=== PATIENT | female | born 1945 | race Two or more races ===

== ENCOUNTER 2024-08-13 20:25 | Inpatient (IN) | payer OTHER ==
[~2024-08-13] VITALS: Ht 157.5 cm; Wt 51.7 kg
[~2024-08-13 20:25] MED LIST: FAMVIR500 MG PO; IMODIUM A-D2 MG PO; PEPCID40 MG; PEPCID40 MG PO; ZOFRAN4 MG PO; ZOVIRAX15 GM TP
--- NOTE | 2024-08-13 20:34 | NUR ---
PACIENTE ALERTA Y ORIENTADA X 3. REFIERE 2 SEMANAS CON TOS, CONGESTION Y DOLOR CORPORAL.
[2024-08-13] MEDS ORDERED: SYNTHROID50 MCG PO (20:43)
[2024-08-13] MEDS ORDERED: TOPROL XL50 M1 (20:43)
[2024-08-13] MEDS ORDERED: AMLODIPINE BESYL5 MG PO (20:43)
[2024-08-13] MEDS ORDERED: MILLIPRED5 MG (20:44)
[2024-08-13] MEDS ORDERED: GRALISE600 MG (20:44)
[2024-08-13] MEDS ORDERED: ROSUVASTATIN CAL5 MG PO (20:44)
[2024-08-13] MEDS ORDERED: PROAIR RESPICL90 MCG (20:45)
[2024-08-13] MEDS ORDERED: 0.9 % SODIUM CHLORIDE 1,000 ML IV ONE (21:15)
[2024-08-13] MEDS ORDERED: FAMOtidine 10 MG/ML (4ML VIAL) IV ONE (21:15)
[2024-08-13] MEDS ORDERED: levoFLOXacin IN DEXTROSE 5 % 500MG/100ML PIGGYBAG IV ONE (21:15)
--- NOTE | 2024-08-13 21:22 | NUR ---
SE EDUCA A PTE SOBRE [place] MED[facility], SE LUZ ELENA MUESTRAS DE LABORATORIO UTILIZANDO MEDIDAS ASEPTICAS. SE COLOCA H/L MATTY DE EDEMA. SE ADMINISTRAN MEDICAMENTOS LOS CUALES TOL[place]A. SE NOTIFICA ESTUDIO DE CT Y RX PENDIENTEA REALIZAR.
[2024-08-13 21:52] LABS: HEMATOCRIT 33.1 % (36.0-45.00); HEMOGLOBIN 11.1 g/dL (12.0-15.00); MEAN CELL VOLUME 91.6 fL (80.00-100.00); MEAN CORPUSCULAR HEMOGLOBIN 30.8 pg (27.00-32.0); MEAN CORPUSCULAR HGB CONC 33.6 g/dl (32.0-36.0); PLATELET COUNT 321 K/uL (150-450); RED BLOOD COUNT 3.61 M/uL (4.00-6.00); RED CELL DISTRIBUTION WIDTH 13.8 % (11.5-14.5)
[2024-08-13 21:53] LABS: ERYTHROCYTE SEDIMENTATION RATE 92 mm/hr
[2024-08-13 21:54] LABS: INR 1.12; PARTIAL THROMBOPLASTIN TIME 26.2 SECONDS (22.0-34.0); PROTHROMBIN TIME 12.1 SECONDS (9.0-11.5)
[2024-08-13 22:07] LABS: ALBUMIN 2.4 gm/dL (3.4-5.0); BILIRUBIN TOTAL 0.43 mg/dL (0.3-1.2); CREATININE SERUM 2.09 mg/dL (0.55-1.02); GFR 22.96; GLOBULINA 4.8 G/DL (2.4-3.5); POTASSIUM 4.8 mEq/L (3.5-5.1); TOTAL PROTEIN 7.2 gm/dL (6.4-8.2)
[2024-08-13 22:14] LABS: C-REACTIVE PROTEIN 21.2 MG/DL (0.00-0.29)
[2024-08-13] MEDS ORDERED: 0.9 % SODIUM CHLORIDE 1,000 ML IV SCH (23:00)
[2024-08-13] MEDS ORDERED: ACETAMINOPHEN 500 MG GEL..CAP PO PRN (23:15)
[2024-08-14] MEDS ORDERED: IPRATROPIUM BROMIDE 0.5 MG/2.5 ML AMPUL.NEB IH SCH (01:00)
[2024-08-14] MEDS ORDERED: GUAIFEN/DEXTROMETHORPHAN/PE 10 ML BLIST.PACK PO SCH (01:00)
[2024-08-14 01:15] LABS: PH,URINE 6.5 (5.0-8.0); URINE APPEARANCE Clear; URINE BILIRRUBIN Negative (NEGATIVE); URINE BLOOD Negative; URINE COLOR Yellow; URINE GLUCOSE Negative (NEGATIVE); URINE KETONE Negative (NEGATIVE); URINE LEUKOCYTE Negative; URINE NITRATE Negative; URINE PROTEIN 30 (NEGATIVE); URINE UROBILINOGEN 0.2 E.U./dl
[2024-08-14 01:19] LABS: URINE EPITHELIAL CELLS 2.3 uL (0.0-38.8); URINE WBC 3.4 uL (0.0-23.2)
[2024-08-14 01:30] LABS: URINE BACTERIA 3.6 uL (0.0-1933); URINE RBC 1.3 uL (0.0-20.8)
[2024-08-14 02:11] LABS: ABG PH 7.434 (7.35-7.45); ABG PO2 66.5 mmHg (80-100); ABG pCO2 25.9 mmHg (35-45); BASE EXCESS -5.4 mmol/l; SaO2 93.2 %
[2024-08-14 02:12] LABS: Tco2 17.8 mmol/l; allen test SATISFACTORY; o2 21 %; puncture site RADIAL LEFT
[2024-08-14] MEDS ORDERED: LEVOTHYROXINE SODIUM 50 MCG TABLET PO SCH (06:00)
[2024-08-14 08:00] VITALS: BP 142/78; O2SAT 98
[2024-08-14] MEDS ORDERED: GABAPENTIN 600 MG TABLET PO SCH (09:00)
[2024-08-14] MEDS ORDERED: levoFLOXacin IN DEXTROSE 5 % 250MG/50ML PIGGYBAG IV SCH (09:00)
[2024-08-14] MEDS ORDERED: FAMOTIDINE/PF 20 MG in 0.9 % SODIUM CHLORIDE 8 ML IV PUSH SCH (09:00)
[2024-08-14] MEDS ORDERED: ENOXAPARIN SODIUM 30 MG/0.3 ML SYRINGE SUBCUTANEO SCH (09:00)
[2024-08-14] MEDS ORDERED: METOPROLOL SUCCINATE 50 MG TAB.SR.24H PO SCH (09:00)
[2024-08-14] MEDS ORDERED: AMLODIPINE BESYLATE 5 MG TABLET PO SCH (09:00)
[2024-08-14] MEDS ORDERED: LEVOFLOXACIN IN DEXTROSE IV SCH (17:00)
[2024-08-14 17:14] VITALS: BP 134/97; O2SAT 96
[2024-08-14] MEDS ORDERED: levoFLOXacin IN DEXTROSE 5 % 500MG/100ML PIGGYBAG IV SCH (18:00)
[2024-08-15] VITALS: BP 134/75; O2SAT 98
[2024-08-15] MEDS ORDERED: AZTREONAM 2,000 MG VIAL IV SCH (05:00)
[2024-08-15 07:18] LABS: HEMATOCRIT 34.6 % (36.0-45.00); HEMOGLOBIN 11.8 g/dL (12.0-15.00); MEAN CELL VOLUME 91.4 fL (80.00-100.00); MEAN CORPUSCULAR HEMOGLOBIN 31.2 pg (27.00-32.0); MEAN CORPUSCULAR HGB CONC 34.1 g/dl (32.0-36.0); PLATELET COUNT 283 K/uL (150-450); RED BLOOD COUNT 3.79 M/uL (4.00-6.00); RED CELL DISTRIBUTION WIDTH 13.9 % (11.5-14.5)
[2024-08-15 08:00] VITALS: BP 140/79; O2SAT 95
[2024-08-15] MEDS ORDERED: METROnidazole 500 MG TABLET PO SCH (09:00)
[2024-08-15] MEDS ORDERED: LINEZOLID 600 MG TABLET PO SCH (09:00)
[2024-08-15] MEDS ORDERED: FLUCONAZOLE IN NACL,ISO-OSM 50 ML IV SCH (11:30)
[2024-08-15] MEDS ORDERED: FLUCONAZOLE IN NACL,ISO-OSM 2 MG/ML ML IV SCH (12:00)
[2024-08-15] MEDS ORDERED: GUAIFEN/DEXTROMETHORPHAN/PE 10 ML BLIST.PACK PO SCH (13:00)
[2024-08-15 16:31] LABS: CALCIUM 8.3 mg/dL (8.5-10.1); CREATININE SERUM 1.86 mg/dL (0.55-1.02); GFR 26.27; POTASSIUM 4.2 mEq/L (3.5-5.1)
[2024-08-15 17:10] VITALS: BP 110/65; O2SAT 94
[2024-08-15 18:54] LABS: URINE APPEARANCE Clear; URINE BILIRRUBIN Negative (NEGATIVE); URINE BLOOD Negative; URINE COLOR Yellow; URINE GLUCOSE Negative (NEGATIVE); URINE KETONE Negative (NEGATIVE); URINE LEUKOCYTE Negative; URINE NITRATE Negative; URINE PROTEIN 30 (NEGATIVE); URINE UROBILINOGEN 0.2 E.U./dl
[2024-08-15 18:56] LABS: URINE BACTERIA 8.5 uL (0.0-1933); URINE EPITHELIAL CELLS 3.9 uL (0.0-38.8); URINE RBC 3.5 uL (0.0-20.8)
[2024-08-15 18:57] LABS: URINE CAST 0.14 uL (0.0-1.40); URINE WBC 1.4 uL (0.0-23.2)
[2024-08-16 01:13] VITALS: BP 148/82; O2SAT 96
[2024-08-16 08:00] VITALS: BP 124/78; O2SAT 96
[2024-08-16 08:47] LABS: CALCIUM 8.3 mg/dL (8.5-10.1); CREATININE SERUM 1.77 mg/dL (0.55-1.02); GFR 27.82; POTASSIUM 4.52 mEq/L (3.5-5.1)
[2024-08-16 08:48] LABS: ALBUMIN 1.9 gm/dL (3.4-5.0); CALCIUM 8.3 mg/dL (8.5-10.1); CREATININE SERUM 1.76 mg/dL (0.55-1.02); PHOSPHOROUS 2.5 mg/dL (2.5-4.9); POTASSIUM 4.48 mEq/L (3.5-5.1)
[2024-08-16 10:23] LABS: MEAN CELL VOLUME 90.1 fL (80.00-100.00); MEAN CORPUSCULAR HEMOGLOBIN 30.9 pg (27.00-32.0); MEAN CORPUSCULAR HGB CONC 34.3 g/dl (32.0-36.0); PLATELET COUNT 270 K/uL (150-450); RED BLOOD COUNT 3.22 M/uL (4.00-6.00); RED CELL DISTRIBUTION WIDTH 13.7 % (11.5-14.5)
[2024-08-16] MEDS ORDERED: LACTOBACILLUS ACIDOPHILUS 1 CAP CAP PO NR (11:00)
[2024-08-16] MEDS ORDERED: IRON/V.C/V.B12/FOLIC A/VIT. E 1 CAPL CAPLET PO SCH (17:00)
[2024-08-16] MEDS ORDERED: VITAMIN B COMPLEX 1 EACH PO SCH (17:00)
[2024-08-16] MEDS ORDERED: LACTOBACILLUS ACIDOPHILUS 1 CAP CAP PO SCH (17:00)
[2024-08-16 20:13] VITALS: BP 127/80; O2SAT 96
[2024-08-17 00:47] VITALS: BP 130/79; O2SAT 96
[2024-08-17 08:00] VITALS: BP 113/61; O2SAT 97
[2024-08-17 08:38] LABS: HEMATOCRIT 29.2 % (36.0-45.00); HEMOGLOBIN 10.1 g/dL (12.0-15.00); MEAN CELL VOLUME 90.9 fL (80.00-100.00); MEAN CORPUSCULAR HEMOGLOBIN 31.4 pg (27.00-32.0); MEAN CORPUSCULAR HGB CONC 34.6 g/dl (32.0-36.0); PLATELET COUNT 250 K/uL (150-450); RED BLOOD COUNT 3.21 M/uL (4.00-6.00); RED CELL DISTRIBUTION WIDTH 14.3 % (11.5-14.5)
[2024-08-17 16:00] VITALS: BP 128/71; O2SAT 97
[2024-08-18 00:30] VITALS: BP 126/66; O2SAT 96
[2024-08-18 07:16] LABS: HEMATOCRIT 29.9 % (36.0-45.00); HEMOGLOBIN 10.1 g/dL (12.0-15.00); MEAN CELL VOLUME 91.2 fL (80.00-100.00); MEAN CORPUSCULAR HEMOGLOBIN 30.9 pg (27.00-32.0); MEAN CORPUSCULAR HGB CONC 33.9 g/dl (32.0-36.0); PLATELET COUNT 238 K/uL (150-450); RED BLOOD COUNT 3.27 M/uL (4.00-6.00); RED CELL DISTRIBUTION WIDTH 14.2 % (11.5-14.5)
[2024-08-18] MEDS ORDERED: SODIUM CHLORIDE 0.45 % 1,000 ML IV SCH (07:30)
[2024-08-18 08:00] VITALS: BP 130/63; O2SAT 95
[2024-08-18 16:00] VITALS: BP 132/55; O2SAT 97
[2024-08-19 00:15] VITALS: BP 110/58; O2SAT 97
[2024-08-19 06:53] LABS: HEMOGLOBIN 10.5 g/dL (12.0-15.00); MEAN CELL VOLUME 93.1 fL (80.00-100.00); MEAN CORPUSCULAR HEMOGLOBIN 30.5 pg (27.00-32.0); MEAN CORPUSCULAR HGB CONC 32.8 g/dl (32.0-36.0); PLATELET COUNT 255 K/uL (150-450); RED BLOOD COUNT 3.44 M/uL (4.00-6.00); RED CELL DISTRIBUTION WIDTH 14.1 % (11.5-14.5)
[2024-08-19 07:44] LABS: CALCIUM 8.4 mg/dL (8.5-10.1); CREATININE SERUM 1.64 mg/dL (0.55-1.02); GFR 30.38; POTASSIUM 4.6 mEq/L (3.5-5.1)
[2024-08-19 08:00] VITALS: BP 123/62; O2SAT 100
[2024-08-19] MEDS ORDERED: DEXTROSE 5 % IN WATER 1,000 ML IV SCH ×2 (10:15→13:00)
[2024-08-19] MEDS ORDERED: POTASSIUM CHLORIDE/D5W 20 MEQ/1,000 ML PIGGYBAG IV SCH (12:00)
[2024-08-19 18:22] VITALS: BP 111/76; O2SAT 98
[2024-08-19] MEDS ORDERED: [UNRECOGNIZED DRUG - MIXTURE] PO SCH (21:00)
[2024-08-20] VITALS: BP 112/57; O2SAT 98
[2024-08-20] MEDS ORDERED: LIDOCAINE HCL MAG HYDROX PO SCH (09:00)
[2024-08-20] MEDS ORDERED: DEXAMETHASONE 3 MG PO SCH (09:00)
[2024-08-20] MEDS ORDERED: SIMETH PO SCH (09:00)
[2024-08-20] MEDS ORDERED: VITAMIN B COMPLEX/LYSINE 1 ML ML PO SCH (09:00)
[2024-08-20] MEDS ORDERED: ALUMINUM HYD PO SCH (09:00)
[2024-08-20 09:56] VITALS: BP 117/77; O2SAT 10
[2024-08-20 16:00] VITALS: BP 113/58; O2SAT 95
[2024-08-21 00:17] VITALS: BP 113/61; O2SAT 97
[2024-08-21 08:00] VITALS: BP 128/58; O2SAT 97
[2024-08-21 08:51] LABS: HEMATOCRIT 28.7 % (36.0-45.00); HEMOGLOBIN 9.6 g/dL (12.0-15.00); MEAN CELL VOLUME 92.9 fL (80.00-100.00); MEAN CORPUSCULAR HEMOGLOBIN 30.9 pg (27.00-32.0); MEAN CORPUSCULAR HGB CONC 33.3 g/dl (32.0-36.0); RED BLOOD COUNT 3.09 M/uL (4.00-6.00); RED CELL DISTRIBUTION WIDTH 14.8 % (11.5-14.5)
[2024-08-21 09:32] LABS: CALCIUM 8.4 mg/dL (8.5-10.1); CREATININE SERUM 1.75 mg/dL (0.55-1.02); GFR 28.18; POTASSIUM 4.14 mEq/L (3.5-5.1)
[2024-08-21 09:45] LABS: PLATELET COUNT 198 K/uL (150-450)
[2024-08-21 16:00] VITALS: BP 117/58; O2SAT 95
[2024-08-21 22:28] LABS: ABG PO2 91.7 mmHg (80-100); ABG pCO2 22.3 mmHg (35-45); BASE EXCESS -15.5 mmol/l; BICARBONATE 9.6 mmol/l (23-25); SaO2 94.7 %; Tco2 10.2 mmol/l; o2 21 %
[2024-08-21 22:29] LABS: allen test SATISFACTORY; puncture site RADIAL RIGHT
[2024-08-22 01:33] VITALS: BP 126/62; O2SAT 96
[2024-08-22 08:00] VITALS: BP 114/57; O2SAT 99
[2024-08-22] MEDS ORDERED: SODIUM BICARBONATE 1 MEQ/ML DISP.SYRIN 50ML IV SCH (14:45)
[2024-08-22] MEDS ORDERED: SODIUM BICARBONATE 100 MEQ in DEXTROSE 5 % IN WATER 1,000 ML IV SCH (15:30)
[2024-08-22 16:00] VITALS: BP 134/64; O2SAT 97
[2024-08-22] MEDS ORDERED: ENOXAPARIN SODIUM 30 MG/0.3 ML SYRINGE SUBCUTANEO STA (18:03)
[2024-08-22] MEDS ORDERED: RIVAROXABAN 15 MG TABLET PO SCH (18:08)
[2024-08-23 02:05] VITALS: BP 116/73; O2SAT 97
[2024-08-23 08:00] VITALS: BP 125/73; O2SAT 99
[2024-08-23] MEDS ORDERED: RIVAROXABAN 15 MG TABLET PO SCH (09:00)
[2024-08-23 12:50] LABS: HEMATOCRIT 28.9 % (36.0-45.00); HEMOGLOBIN 9.7 g/dL (12.0-15.00); MEAN CORPUSCULAR HGB CONC 33.7 g/dl (32.0-36.0); PLATELET COUNT 223 K/uL (150-450); RED BLOOD COUNT 3.14 M/uL (4.00-6.00); RED CELL DISTRIBUTION WIDTH 15.2 % (11.5-14.5)
[2024-08-23 13:34] LABS: BILIRUBIN TOTAL 0.39 mg/dL (0.3-1.2); CALCIUM 8.4 mg/dL (8.5-10.1); CREATININE SERUM 1.66 mg/dL (0.55-1.02); GFR 29.95; GLOBULINA 3.6 G/DL (2.4-3.5); POTASSIUM 3.89 mEq/L (3.5-5.1); TOTAL PROTEIN 5.6 gm/dL (6.4-8.2)
[2024-08-23 16:04] VITALS: BP 120/79; O2SAT 98
[2024-08-24 01:32] VITALS: BP 120/75; O2SAT 97
[2024-08-24 08:00] VITALS: BP 120/75; O2SAT 100
[2024-08-24 16:48] VITALS: BP 103/66; O2SAT 95
[2024-08-25 02:10] VITALS: BP 127/84; O2SAT 96
[2024-08-25 02:20] VITALS: BP 127/84; O2SAT 96
== END 2024-08-25 13:48 | disposition home or self-care (01) | DRG 193 ==
LOC: ER 20:27 → SURH 23:04
PROVIDERS: General Practice; Internal Medicine; Internal Medicine Infectious Disease; Internal Medicine Nephrology; ADMIT Student in an Organized Health Care Education/Training Program; ATTEND Student in an Organized Health Care Education/Training Program
PROC: BW24ZZZ Computerized Tomography (CT Scan) of Chest and Abdomen (ICD-10-PCS; 2024-08-13)
PROC: 02HV33Z Insertion of Infusion Device into Superior Vena Cava, Percutaneous Approach (ICD-10-PCS; 2024-08-15)
PROC: B54NZZZ Ultrasonography of Left Upper Extremity Veins (ICD-10-PCS; principal; 2024-08-22)
DX: J18.9 Pneumonia, unspecified organism (principal); A41.9 Sepsis, unspecified organism; N17.9 Acute kidney failure, unspecified; J90 Pleural effusion, not elsewhere classified; E87.0 Hyperosmolality and hypernatremia; I12.9 Hypertensive chronic kidney disease with stage 1 through stage 4 chronic kidney disease, or unspecified chronic kidney disease; N18.30 Chronic kidney disease, stage 3 unspecified; E78.5 Hyperlipidemia, unspecified; R09.02 Hypoxemia; I80.8 Phlebitis and thrombophlebitis of other sites; D63.1 Anemia in chronic kidney disease